=== PATIENT | female | born 1965 | race Caucasian/White ===

== ENCOUNTER 2017-04-14 23:48 | Inpatient (IN) | payer BC ==
[~2017-04-14] VITALS: Ht 162.6 cm; Wt 99.2 kg
[~2017-04-14 23:48] MED LIST: AMIT10TA6 PO; HYOS0.1256 SL; IBUP-103 PO; METO25TA56 PO; MTR600X PO; OMEG10007 PO; OXYC-57 PO; POTA10CA28 PO; PRLSR20 PO; TRIA75TA53 PO
[2017-04-15] MEDS ORDERED: KETOROLAC TROMETHAMINE 30 MG/ML VIAL IV STA (00:15)
[2017-04-15 00:30] LABS: BASO % 0.4 %; BASO ABS # 0.04 K/uL (0-0.2); EOS % 1.6 %; EOS ABS # 0.15 K/uL (0-0.5); HEMATOCRIT 41.6 % (37-47); HEMOGLOBIN 14.6 g/dL (12.0-16.0); IG# 0.02 K/uL (0.00-0.02); LYMPH % 17.8 %; LYMPH ABS # 1.63 K/uL (1.2-3.4); MEAN CELL VOLUME 86.5 fL (80-100); MEAN CORPUSCULAR HEMOGLOBIN 30.4 pg (25-34); MEAN CORPUSCULAR HGB CONC 35.1 g/dl (32-36); MEAN PLATELET VOLUME 8.9 fL (7.4-10.4); MONO % 5.7 %; MONO ABS # 0.52 K/uL (0.11-0.59); NEUT % 74.3 %; NEUT ABS # 6.81 K/uL (1.4-6.5); PLATELET COUNT 279 K/uL (130-400); RED CELL DISTRIBUTION WIDTH CV 13.2 % (11.5-14.5); RED CELL DISTRIBUTION WIDTH SD 41.8 fL (36.4-46.3); WHITE BLOOD COUNT 9.17 K/uL (4.8-10.8)
[2017-04-15] MEDS ORDERED: DOCU-94 PO (00:33)
[2017-04-15] MEDS ORDERED: CHOL2000 PO (00:36)
[2017-04-15] MEDS ORDERED: HYDR25TA4 PO (00:36)
[2017-04-15] MEDS ORDERED: MISCCAP80 PO (00:39)
[2017-04-15] MEDS ORDERED: OSEL75CA23 PO (00:39)
[2017-04-15 00:40] LABS: INR 0.9 (0.9-1.1); PTT PATIENT 27.9 SECONDS (21.0-31.0)
[2017-04-15] MEDS ORDERED: RANI300T2 PO (00:40)
[2017-04-15] MEDS ORDERED: KETO10TA PO (00:41)
[2017-04-15] MEDS ORDERED: B-COTAB18 PO (00:42)
[2017-04-15 00:51] LABS: ALBUMIN 3.4 gm/dl (3.4-5.0); ALT/SGPT 46 U/L (12-78); AST/SGOT 49 U/L (15-37); BLOOD UREA NITROGEN 8 mg/dl (7-18); CALCIUM 8.5 mg/dl (8.5-10.1); CARBON DIOXIDE 29 mmol/L (21-32); CREATININE 0.67 mg/dl (0.60-1.20); GLUCOSE 106 mg/dl (70-99); LIPASE 217 U/L (73-393); POTASSIUM 2.9 mmol/L (3.5-5.1); SODIUM 137 mmol/L (136-145)
[2017-04-15 00:57] LABS: ALKALINE PHOSPHATASE 97 U/L (45-117); CKMB 0.6 ng/ml (0.5-3.6); TOTAL PROTEIN 7.7 gm/dl (6.4-8.2)
[2017-04-15] MEDS ORDERED: CEFOXITIN 2000MG/60 ML D5W IV STA (02:29)
--- NOTE | 2017-04-15 02:39 | EMERGENCY ROOM VISIT NOTE ---
History Report prepared by Lashawn: Mitesh Cochran Under the Supervision of: Dr. Sudarshan Chawla M.D. First contact with patient: 00:02 Chief Complaint: CHEST PAIN Stated Complaint: HEARTBURN-WILL NOT GO AWAY LAST 3-4 HRS History of Present Illness The patient is a 51 year old female who presents to the Emergency Room with complaints of constant chest pain since three hours ago. She describes the pain as sharp. She notes the sharp pain has improved. She denies any abdominal pain, though notes rib soreness. She notes the pressure has not resolved. She currently rates the pain a 2/10 in severity, though reports it as a 9/10 at its worst. She denies any similar symptoms in the past. She has a history of HTN, though denies any DM. She has a history of breast reduction surgery and a partial hysterectomy. She took a Ranidine initially and then she took Omeprazole. She reports feeling hot, cold, and sweaty. She has been on Tamiflu for two days, though she has not been tested for influenza. She reports experiencing flu-like symptoms three days ago. She had chills three days ago and by that evening she reported body aches and jaw pain. She denies any cough. She reports dull back pain. She has a family history of CHF, gall bladder disease, and DM. She reports her sister had CHF in her early 30s. Pt denies LOC , headache, fevers, visual changes, neck pain, breathing difficulties, nausea, vomiting, abdominal pain, melena, hematochezia, urinary symptoms, numbness, weakness, rash, or other complaints. Source of History: patient Onset: three hours ago Position: chest Symptom Intensity: 2/10 Associated Symptoms: + chills, + back pain, No cough Note: She reports rib soreness, feeling hot, cold, and sweaty. She reports body aches and jaw pain. Review of Systems See HPI for pertinent positives and negatives. A total of ten systems were reviewed and were otherwise negative. Past Medical & Surgical Medical Problems: (1) Cholecystitis (2) Menorrhagia (3) Pelvic pain Surgical Problems: (1) H/O bilateral breast reduction surgery (2) S/P partial hysterectomy Family History Diabetes mellitus Gallbladder disease Heart disease Social History Smoking Status: Never Smoker Smokeless Tobacco Use: No Marital Status: Housing Status: lives with family Occupation Status: employed Current/Historical Medications Scheduled B-Complex Vitamins (Vitamin B Complex), 1 TAB PO DAILY Cholecalciferol (Vitamin D3), 2,000 MG PO DAILY Docusate Sodium (Colace), 100 MG PO DAILY Fish Oil ([place]-3), 1 CAP PO QAM Hydrochlorothiazide (Hctz), 25 MG PO DAILY Oseltamivir Phosphate (Tamiflu), 75 MG PO BID Potassium Chloride (Micro-K Ext Rel), 10 MEQ PO QAM Probiotic Product (Probiotic), 1 CAP PO DAILY Ranitidine Hcl (Zantac), 300 MG PO HS Scheduled PRN Ketorolac (Toradol), 10 MG PO Q6H PRN for Pain Omeprazole (Prilosec), 20 MG PO DAILY PRN for GI Upset Allergies Coded Allergies: Iodine (Unverified Allergy, Mild, 04/03/09) Aspirin (Unverified Adverse Reaction, Unknown, BLOODY NOSE, 05/23/13) Physical Exam Vital Signs Date Time Temp Pulse Resp B/P (MAP) Pulse Ox O2 Delivery O2 Flow Rate FiO2 04/15/17 01:51 66 18 120/81 96 Room Air 04/15/17 01:05 73 18 125/84 95 Room Air 04/15/17 00:17 69 04/15/17 00:16 97 Room Air 04/15/17 00:13 97 Room Air 04/15/17 00:13 72 18 147/97 97 Room Air 04/15/17 00:13 97 Room Air 04/14/17 23:51 36.6 77 16 153/99 97 Room Air Physical Exam GENERAL: Awake, alert, well-appearing, in no distress HENT: Normocephalic, atraumatic. Oropharynx unremarkable. EYES: Normal conjunctiva. Sclera non-icteric. NECK: Supple. No nuchal rigidity. FROM. No masses. RESPIRATORY: Clear to auscultation. No wheezes. CARDIAC: Normal rate. Normal rhythm. No murmurs. No rubs. Extremities warm and well perfused. Pulses equal. No JVD. GI: Soft, non-distended. Tenderness to palpation in RUQ. No rebound or guarding. No masses. RECTAL: Deferred. MUSCULOSKELETAL: Atraumatic. Chest examination reveals no tenderness. The back is symmetrical on inspection without obvious abnormality. There is no CVA tenderness to palpation. No joint edema. LOWER EXTREMITIES: Calves are equal size bilaterally and non-tender. No edema. No discoloration. NEURO: Normal sensorium. No sensory or motor deficits noted. SKIN: No rash or jaundice noted. Medical Decision & Procedures ER Provider Diagnostic Interpretation: Radiology results as stated below per my review and interpretation: Chest x-ray. Findings: A chest x-ray was performed and revealed no pneumothorax , effusion, infiltrate, pulmonary edema, free air under the diaphragm, or wide mediastinum. When compared to 11/20/2013 There is no change. Ultrasound of the right upper quadrant per stat rad. There is an echogenic structure in the gallbladder neck and this is concerning for a stone. Additional stones and sludge in the rest of the gallbladder. Mild distention of the gallbladder. Gallbladder wall thickening measuring 4.7 mm. Mild pericholecystic fluid and or fatty sparing in the liver along the gallbladder fossa. Findings are concerning for acute cholecystitis. Sonographic Simpson sign could not be assessed due to patient's receiving pain meds. Mildly enlarged common bile duct measuring up to 7 mm. No choledocholithiasis identified. Ringdown artifact in the wall of the gallbladder fundus may represent adenomyomatosis. Laboratory Results 04/15/17 00:10 Red Blood Count 4.81, Mean Corpuscular Volume 86.5, Mean Corpuscular Hemoglobin 30.4, Mean Corpuscular Hemoglobin Concent 35.1, Mean Platelet Volume 8.9, Neutrophils (%) (Auto) 74.3, Lymphocytes (%) (Auto) 17.8, Monocytes (%) (Auto) 5.7, Eosinophils (%) (Auto) 1.6, Basophils (%) (Auto) 0.4, Neutrophils # (Auto) 6.81, Lymphocytes # (Auto) 1.63, Monocytes # (Auto) 0.52, Eosinophils # (Auto) 0.15, Basophils # (Auto) 0.04 04/15/17 00:10 Test 04/15/17 00:10 White Blood Count 9.17 K/uL (4.8-10.8) Red Blood Count 4.81 M/uL (4.2-5.4) Hemoglobin 14.6 g/dL (12.0-16.0) Hematocrit 41.6 % (37-47) Mean Corpuscular Volume 86.5 fL (80-100) Mean Corpuscular Hemoglobin 30.4 pg (25-34) Mean Corpuscular Hemoglobin Concent 35.1 g/dl (32-36) Platelet Count 279 K/uL (130-400) Mean Platelet Volume 8.9 fL (7.4-10.4) Neutrophils (%) (Auto) 74.3 % Lymphocytes (%) (Auto) 17.8 % Monocytes (%) (Auto) 5.7 % Eosinophils (%) (Auto) 1.6 % Basophils (%) (Auto) 0.4 % Neutrophils # (Auto) 6.81 K/uL (1.4-6.5) Lymphocytes # (Auto) 1.63 K/uL (1.2-3.4) Monocytes # (Auto) 0.52 K/uL (0.11-0.59) Eosinophils # (Auto) 0.15 K/uL (0-0.5) Basophils # (Auto) 0.04 K/uL (0-0.2) RDW Standard Deviation 41.8 fL (36.4-46.3) RDW Coefficient of Variation 13.2 % (11.5-14.5) Immature Granulocyte % (Auto) 0.2 % Immature Granulocyte # (Auto) 0.02 K/uL (0.00-0.02) Prothrombin Time 9.7 SECONDS (9.0-12.0) Prothromb Time International Ratio 0.9 (0.9-1.1) Activated Partial Thromboplast Time 27.9 SECONDS (21.0-31.0) Partial Thromboplastin Ratio 1.1 Anion Gap 8.0 mmol/L (3-11) Est Creatinine Clear Calc Drug Dose 118.5 ml/min Estimated GFR () 119.6 Estimated GFR (Non- 103.2 BUN/Creatinine Ratio 11.3 (10-20) Calcium Level 8.5 mg/dl (8.5-10.1) Total Bilirubin 0.4 mg/dl (0.2-1) Direct Bilirubin 0.2 mg/dl (0-0.2) Aspartate Amino Transf (AST/SGOT) 49 U/L (15-37) Alanine Aminotransferase (ALT/SGPT) 46 U/L (12-78) Alkaline Phosphatase 97 U/L (45-117) Total Creatine Kinase 51 U/L (26-192) Creatine Kinase MB 0.6 ng/ml (0.5-3.6) Creatine Kinase MB Ratio 1.2 (0-3.0) Troponin I < 0.015 ng/ml (0-0.045) Total Protein 7.7 gm/dl (6.4-8.2) Albumin 3.4 gm/dl (3.4-5.0) Lipase 217 U/L (73-393) Laboratory results reviewed by me Medications Administered Medications (Trade) Dose Ordered Sig/Mary Route Start Time Stop Time Status Last Admin Dose Admin Ketorolac Tromethamine (Toradol Inj) 15 mg NOW STAT IV 04/15/17 00:15 04/15/17 00:16 DC 04/15/17 00:21 15 MG ECG Per My Interpretation Indication: chest pain Rate (beats per minute): 69 Rhythm: normal sinus Findings: no acute ischemic change, no ectopy Change: Patient's electrocardiogram was interpreted by me. ED Course 0010: The patient was evaluated in room A2. A complete history and physical exam was performed. 0015: Ordered Toradol 15 mg IV 0050: I reassessed the patient at this time. She is feeling better. Medical Decision Triage Nursing notes reviewed. The patient's presentation and history were concerning for chest and upper abdominal pain. Etiologies such as peptic ulcer disease, biliary pathology, reflux, cardiac ischemia, aortic dissection, pulmonary embolism, pneumonia, pneumothorax, musculoskeletal, infections, gastrointestinal, as well as others were entertained. The patient was evaluated. ECG was performed. This was negative. Blood work was obtained and was rather unremarkable. There is minimal elevation of LFTs. She was tender in the right upper quadrant and gallbladder imaging was performed. Chest x-ray was unremarkable. She was given IV Toradol and did feel better with this. Her ultrasound imaging was concerning for acute cholecystitis. The patient was given a dose of IV Mefoxin. Consultation was made with internal medicine as there is concerned about an impacted stone in the gallbladder neck. I discussed the case. The patient was evaluated in the Emergency Room for further management. Medication Reconcilliation Current Medication List: was personally reviewed by me Consults Time Called: 023 Consulting Physician: Dr. Howe Returned Call: 0230 Discussed the patient's results and presentation. He will evaluate the patient for further management and consultation. Impression Primary Impression: Cholecystitis Scribe Attestation The scribe's documentation has been prepared under my direction and personally reviewed by me in its entirety. I confirm that the note above accurately reflects all work, treatment, procedures, and medical decision making performed by me. Departure Information Dispostion Being Evaluated By Hospitalist Referrals Roxane Gallardo D.O. (PCP) Patient Instructions My [facility] [address]
[2017-04-15] MEDS ORDERED: ENOXAPARIN 40 MG/0.4 ML SYR SQ SCH (03:00)
[2017-04-15] MEDS ORDERED: MoRPHine SULFATE 4 MG/ML 1 ML CARP\\VIAL IV PRN (03:00)
[2017-04-15] MEDS ORDERED: PROCHLORPERAZINE INJ 5 MG in SYRINGE 4 ML IV PRN (03:00)
[2017-04-15] MEDS ORDERED: PANTOprazole SOD 40 MG TAB PO PRN (03:00)
[2017-04-15] MEDS ORDERED: ACETAMINOPHEN 325 MG TAB PO PRN (03:00)
[2017-04-15] MEDS ORDERED: LORAZEPAM 2 MG/ML 1 ML VIAL IV PRN (03:00)
[2017-04-15] MEDS ORDERED: TRAMADOL HCL 50 MG TAB PO PRN (03:00)
[2017-04-15 04:00] VITALS: BP 142/94; PULSE 72; TEMP 36.5; Ht 162.6 cm; Wt 99.2 kg
[2017-04-15] MEDS ORDERED: NSS + 20MEQ KCL 1000ML 1,000 ML IV SCH (04:00)
[2017-04-15] MEDS ORDERED: POTASSIUM CHLORIDE 20 MEQ TABCR PO SCH (04:00)
[2017-04-15] MEDS: AMPICILLIN/SULBACTAM SOD INJ 3,000 MG in SODIUM CHLORIDE 0.9% 100ML 100 ML IV SCH ×3 (04:08→16:25)
[2017-04-15] MEDS ORDERED: AMPICILLIN/SULBACTAM CONSULT ACTIVE PRN (04:45)
--- NOTE | 2017-04-15 05:35 | HISTORY & PHYSICAL EXAMINATION ---
DATE OF ADMISSION: 04/15/2017 PRIMARY CARE PHYSICIAN: Roxane Gallardo DO. CHIEF COMPLAINT: Abdominal pain. HISTORY OF PRESENT ILLNESS: History obtained from patient and records. Medical history significant for hypertension, GERD, diverticulosis. Last year, on and off epigastric discomfort, burning, precipitated by fatty food intake, sometimes relieved by antacids. Last night, she had recurrence of discomfort going to the right side and relieved by home antacids, nausea, 2 episodes of emesis. Good bowel movement. No fever, no chills. An ultrasound done at the ER showed fatty infiltration. Echogenic structure. Gallbladder neck, concern recurrent stone, additional stone and sludge. mild pericholecystic fluid, concerning for acute cholecystitis. ring down artifact, gallbladder wall, representing adenomatosis, mildly enlarged common bile duct measuring 7 mm. No stone identified. Patient given cefoxitin in the ER for possible cholecystitis. MEDICAL HISTORY: As above. Px started on Tamiflu by work Telemedicine program for presumptive flu 2 days ago . flu test was however negative. SURGICAL HISTORY: She has had breast reduction, gynecologic procedures. HOME MEDICATIONS: Include omeprazole, Tamiflu, probiotic, Micro-K, Zantac. Multivitamins, Colace, and Toradol. ALLERGIES: TO ASPIRIN AND IODINE. FAMILY HISTORY: Gallbladder disease, heart disease, diabetes, and stroke. PERSONAL AND SOCIAL HISTORY: Nonsmoker. No chronic intake of alcoholic beverages. [employer] employee. REVIEW OF SYSTEMS: As per HPI. All 10 systems reviewed, all other ROS negative. PHYSICAL EXAMINATION: VITAL SIGNS: Blood pressure was noted to be 125/84, pulse rate 70, RR 18, temperature 36.6, and sats 97 on room air. GENERAL: pleasant, no respiratory distress, obese. Looks younger for stated age. SKIN: Normal color. Warm. HEENT: Shorter palpebral conjunctivae. No ptosis. Dry mucosa. NECK: Short neck, supple. CHEST: Clear to auscultation. No tenderness. HEART: Regular rate and rhythm. No murmur. ABDOMEN: Some distention. Minimal epigastric tenderness. EXTREMITIES: Minimal LE edema. No tenderness. No gross deformities NEUROLOGIC: Coherent, no gross focality. LABORATORY DATA: Hemoglobin was 14.6, hematocrit 44, white cell count was 9, and platelets 270. Sodium 138, potassium 2.9, chloride 100, CO2 of 21, BUN 8, creatinine 0.6, glucose was noted to be 106. AST 49, ALT normal. Lipase was 217. Gallbladder ultrasound as above. ASSESSMENT: 1. Acute calculous cholecystitis. No sepsis. 2. Hypertension, stable. 3. Hypokalemia secondary to emesis, diuretic therapy. 4. Recent viral illness, on empiric Tamiflu Rx. PLAN: GMF Unasyn. Surgery consult RE cholecystitis. Replace potassium. Hold home diuretics for now. Complete Tamiflu course. DVT prophylaxis with Lovenox subQ. Full code. MTDD
[2017-04-15 05:41] LABS: BASO % 0.3 %; BASO ABS # 0.02 K/uL (0-0.2); EOS % 1.4 %; EOS ABS # 0.08 K/uL (0-0.5); HEMATOCRIT 38.8 % (37-47); HEMOGLOBIN 13.7 g/dL (12.0-16.0); IG# 0.02 K/uL (0.00-0.02); LYMPH ABS # 1.64 K/uL (1.2-3.4); MEAN CORPUSCULAR HEMOGLOBIN 30.4 pg (25-34); MEAN CORPUSCULAR HGB CONC 35.3 g/dl (32-36); MEAN PLATELET VOLUME 8.8 fL (7.4-10.4); MONO % 6.5 %; MONO ABS # 0.38 K/uL (0.11-0.59); NEUT % 63.5 %; NEUT ABS # 3.72 K/uL (1.4-6.5); PLATELET COUNT 245 K/uL (130-400); RED CELL DISTRIBUTION WIDTH CV 13.1 % (11.5-14.5); RED CELL DISTRIBUTION WIDTH SD 41.2 fL (36.4-46.3); WHITE BLOOD COUNT 5.86 K/uL (4.8-10.8)
[2017-04-15] MEDS ORDERED: CEFTRIAXONE SOD INJ 1 GM in DEXTROSE 5% ADD-VANTAGE 50ML 50 ML IV SCH (06:00)
[2017-04-15] MEDS ORDERED: CEFTRIAXONE SOD INJ 1000 MG in DEXTROSE 5% 50ML IV SCH (06:00)
[2017-04-15 06:18] LABS: CREATININE 0.69 mg/dl (0.60-1.20); POTASSIUM 3.2 mmol/L (3.5-5.1)
[2017-04-15 06:21] LABS: TOTAL PROTEIN 6.8 gm/dl (6.4-8.2)
--- NOTE | 2017-04-15 06:51 | DIAGNOSTIC IMAGING REPORT ---
ABDOMINAL ULTRASOUND, RIGHT UPPER QUADRANT HISTORY: Right upper quadrant abdominal pain. Vomiting.. COMPARISON: Outside hospital abdomen and pelvis CTA 113. FINDINGS: Pancreas: The body and tail the pancreas are obscured by overlying bowel gas. The pancreatic head appears unremarkable. Liver: The liver is echogenic consistent with fatty change. Gallbladder: Mild gallbladder wall thickening with trace edema adjacent to the hepatic surface. Small stone near the neck of the gallbladder. Small amount of gallbladder sludge. Small amount of right down artifact at the gallbladder wall near the fundus may represent adenomyomatosis. CBD: Mildly dilated measuring up to 7 mm. Right kidney: No hydronephrosis. IMPRESSION: 1. Gallbladder wall thickening containing a small amount of sludge and a small stone. Common bile duct is slightly distended up 7 mm. This findings could represent acute cholecystitis. Clinical correlation recommended. 2. Hepatic steatosis. Electronically signed by: Bishop Leon M.D. 04/15/2017 6:50 AM Dictated Date/Time: 04/15/2017 6:46 AM
[2017-04-15 06:52] VITALS: BP 123/80; PULSE 72; TEMP 36.5; O2SAT 97
[2017-04-15 07:30] VITALS: O2SAT 97
--- NOTE | 2017-04-15 07:47 | Surgery Consultation ---
Consultation Date of Consultation: Apr 15, 2017. Attending Physician: Noman Villegas DO Reason for Consultation: Acute Cholecystitis History of Present Illness 51F presented to the ED yesterday evening due to abdominal pain, nausea and an episode of vomiting. Patient reports her pain is mostly controlled at this time but she still feels discomfort in her RUQ. States she has had problems like this in the past but never severe or lasting more than 1-2 hours. No N/V since she came to the ED. Denies fever/chills but she has been sick recently ( diagnosed with the flu on ). She has been urinating and moving her bowels without trouble. PSHx significant for partial hysterectomy. FHx significant for gallbladder disease. She last ate yesterday before presenting to the ED. She is currently receiving lovenox in the hospital. WBC WNL. AST 154 , ALT 127. Family History Diabetes mellitus Gallbladder disease Heart disease Social History Smoking Status: Never Smoker Smokeless Tobacco Use: No Marital Status: Housing Status: lives with family Occupation Status: employed Allergies Coded Allergies: Iodine (Unverified Allergy, Mild, 04/03/09) Aspirin (Unverified Adverse Reaction, Unknown, BLOODY NOSE, 05/23/13) Home Medications Scheduled B-Complex Vitamins (Vitamin B Complex), 1 TAB PO DAILY Cholecalciferol (Vitamin D3), 2,000 MG PO DAILY Docusate Sodium (Colace), 100 MG PO DAILY Fish Oil ([place]-3), 1 CAP PO QAM Hydrochlorothiazide (Hctz), 25 MG PO DAILY Oseltamivir Phosphate (Tamiflu), 75 MG PO BID Potassium Chloride (Micro-K Ext Rel), 10 MEQ PO QAM Probiotic Product (Probiotic), 1 CAP PO DAILY Ranitidine Hcl (Zantac), 300 MG PO HS Scheduled PRN Ketorolac (Toradol), 10 MG PO Q6H PRN for Pain Omeprazole (Prilosec), 20 MG PO DAILY PRN for GI Upset Current Inpatient Medications Current Inpatient Medications Medications (Trade) Dose Ordered Sig/Mary Route Start Time Stop Time Status Last Admin Dose Admin Potassium Chloride/Sodium Chloride 1,000 ml @ 60 mls/hr [id number] IV 04/15/17 04:00 05/15/17 03:59 04/15/17 04:07 60 MLS/HR Enoxaparin Sodium (Lovenox Inj) 40 mg Q24H SQ 04/15/17 03:00 05/15/17 02:59 04/15/17 04:09 40 MG Acetaminophen (Tylenol Tab) 325 mg Q6H PRN PO 04/15/17 03:00 05/15/17 02:59 Tramadol HCl (Ultram Tab) not relieved by tylenol @ Q6H PRN PO 04/15/17 03:00 05/15/17 02:59 Prochlorperazine Edisylate 5 mg/ Syringe 5 ml @ 5 mls/min Q6H PRN IV 04/15/17 03:00 05/15/17 02:59 Lorazepam (Ativan Inj) 0.5 mg Q4H PRN IV 04/15/17 03:00 05/15/17 02:59 Morphine Sulfate (MoRPHine SULFATE INJ) 4 mg Q3H PRN IV 04/15/17 03:00 04/29/17 02:59 Ampicillin Sodium/ Sulbactam Sodium (Consult) 1 ea UD PRN N/A 04/15/17 04:45 05/15/17 04:44 Docusate Sodium (coLACE CAP) 100 mg DAILY PO 04/15/17 09:00 05/15/17 08:59 Oseltamivir Phosphate (Tamiflu Cap) 75 mg BID PO 04/15/17 09:00 04/19/17 08:59 Ranitidine HCl (zANTac TAB) 300 mg HS PO 04/15/17 21:00 05/15/17 20:59 Vitamin B Complex (Vitamin B Complex) 1 tab DAILY PO 04/15/17 09:00 05/15/17 08:59 Pantoprazole Sodium (Protonix Tab) 40 mg DAILY PRN PO 04/15/17 03:00 05/15/17 02:59 Ampicillin Sodium/ Sulbactam Sodium 3000 mg/Sodium Chloride 108 ml @ 216 mls/hr Q6H IV 04/15/17 04:00 04/25/17 03:59 04/15/17 04:08 216 MLS/HR Review of Systems Constitutional: No fever, No chills Cardiovascular: No chest pain Abdomen: + pain (RUQ), + nausea, + vomiting, No diarrhea, No constipation Genitourinary - Female: No dysuria Physical Exam Date Time Temp Pulse Resp B/P (MAP) Pulse Ox O2 Delivery O2 Flow Rate FiO2 04/15/17 06:52 36.5 72 16 123/80 (94) 97 Room Air 04/15/17 04:00 36.5 72 16 142/94 Room Air 04/15/17 04:00 Room Air 04/15/17 03:00 67 18 138/90 97 Room Air 04/15/17 01:51 66 18 120/81 96 Room Air 04/15/17 01:05 73 18 125/84 95 Room Air 04/15/17 00:17 69 04/15/17 00:16 97 Room Air 04/15/17 00:13 97 Room Air 04/15/17 00:13 72 18 147/97 97 Room Air 04/15/17 00:13 97 Room Air 04/14/17 23:51 36.6 77 16 153/99 97 Room Air General Appearance: WD/WN, no apparent distress Head: normocephalic, atraumatic ENT: hearing grossly normal Respiratory/Chest: no respiratory distress, no accessory muscle use Abdomen/GI: normal bowel sounds, soft, no organomegaly, no pulsatile mass, + tenderness (RUQ) Neurologic/Psych: alert, normal mood/affect, oriented x 3 Skin: normal color, warm/dry Laboratory Results Last 24 Hours Test 04/15/17 00:10 04/15/17 05:01 White Blood Count 9.17 K/uL 5.86 K/uL Red Blood Count 4.81 M/uL 4.51 M/uL Hemoglobin 14.6 g/dL 13.7 g/dL Hematocrit 41.6 % 38.8 % Mean Corpuscular Volume 86.5 fL 86.0 fL Mean Corpuscular Hemoglobin 30.4 pg 30.4 pg Mean Corpuscular Hemoglobin Concent 35.1 g/dl 35.3 g/dl Platelet Count 279 K/uL 245 K/uL Mean Platelet Volume 8.9 fL 8.8 fL Neutrophils (%) (Auto) 74.3 % 63.5 % Lymphocytes (%) (Auto) 17.8 % 28.0 % Monocytes (%) (Auto) 5.7 % 6.5 % Eosinophils (%) (Auto) 1.6 % 1.4 % Basophils (%) (Auto) 0.4 % 0.3 % Neutrophils # (Auto) 6.81 K/uL 3.72 K/uL Lymphocytes # (Auto) 1.63 K/uL 1.64 K/uL Monocytes # (Auto) 0.52 K/uL 0.38 K/uL Eosinophils # (Auto) 0.15 K/uL 0.08 K/uL Basophils # (Auto) 0.04 K/uL 0.02 K/uL RDW Standard Deviation 41.8 fL 41.2 fL RDW Coefficient of Variation 13.2 % 13.1 % Immature Granulocyte % (Auto) 0.2 % 0.3 % Immature Granulocyte # (Auto) 0.02 K/uL 0.02 K/uL Prothrombin Time 9.7 SECONDS Prothromb Time International Ratio 0.9 Activated Partial Thromboplast Time 27.9 SECONDS Partial Thromboplastin Ratio 1.1 Sodium Level 137 mmol/L 139 mmol/L Potassium Level 2.9 mmol/L 3.2 mmol/L Chloride Level 100 mmol/L 101 mmol/L Carbon Dioxide Level 29 mmol/L 30 mmol/L Anion Gap 8.0 mmol/L 7.0 mmol/L Blood Urea Nitrogen 8 mg/dl 8 mg/dl Creatinine 0.67 mg/dl 0.69 mg/dl Est Creatinine Clear Calc Drug Dose 118.5 ml/min 112.9 ml/min Estimated GFR () 119.6 118.5 Estimated GFR (Non- 103.2 102.2 BUN/Creatinine Ratio 11.3 11.2 Random Glucose 106 mg/dl 85 mg/dl Calcium Level 8.5 mg/dl 8.0 mg/dl Magnesium Level 2.2 mg/dl Total Bilirubin 0.4 mg/dl 0.3 mg/dl Direct Bilirubin 0.2 mg/dl Aspartate Amino Transf (AST/SGOT) 49 U/L 154 U/L Alanine Aminotransferase (ALT/SGPT) 46 U/L 127 U/L Alkaline Phosphatase 97 U/L 99 U/L Total Creatine Kinase 51 U/L Creatine Kinase MB 0.6 ng/ml Creatine Kinase MB Ratio 1.2 Troponin I < 0.015 ng/ml Total Protein 7.7 gm/dl 6.8 gm/dl Albumin 3.4 gm/dl 3.0 gm/dl Lipase 217 U/L Globulin 3.8 gm/dl Albumin/Globulin Ratio 0.8 Assessment & Plan Acute Cholecystitis Symptoms and imaging seem to correlate with GB etiology. Continue NPO, IV fluids, pain medication PRN, IV Zofran PRN, SCDs. MRCP scheduled for today due to elevated liver enzymes. Given recent illness, it would be worthwhile to hold off on removing gallbladder. Will opt for close outpatient f/u for gallbladder removal if patient continues to feel better. Findings discussed with Dr. Vinson. Please contact with questions or concerns.
--- NOTE | 2017-04-15 08:13 | DIAGNOSTIC IMAGING REPORT ---
CHEST ONE VIEW PORTABLE HISTORY: Atypical CHEST PAIN COMPARISON: Chest 11/20/2012. FINDINGS: There are low lung volumes. The lungs are clear. The heart is mildly enlarged. No pleural effusions. No pneumothorax. IMPRESSION: Mild cardiomegaly and low lung volumes. Otherwise, no acute process within the chest Electronically signed by: Bishop Leon M.D. 04/15/2017 8:11 AM Dictated Date/Time: 04/15/2017 8:10 AM
[2017-04-15] MEDS ORDERED: NON-FORMULARY MEDICATION (Probiotic Product (Probiotic) 1 CAP) PO SCH (09:00)
[2017-04-15] MEDS ORDERED: VITAMIN B COMPLEX TAB PO SCH (09:00)
[2017-04-15] MEDS ORDERED: OSELTAMIVIR PHOSPHATE 75 MG CAP PO SCH (09:00)
[2017-04-15] MEDS ORDERED: DOCUSATE SODIUM 100 MG CAP PO SCH (09:00)
--- NOTE | 2017-04-15 13:15 | DIAGNOSTIC IMAGING REPORT ---
MRCP HISTORY: Generalized abdominal pain. Abnormal ultrasound. Abnormal LFTs. TECHNIQUE: MRCP the abdomen was performed without contrast according to standard departmental protocol. COMPARISON STUDY: Abdominal ultrasound 04/15/2017. FINDINGS: Trace bilateral pleural effusions. There is motion artifact. The liver, adrenal glands, pancreas, and kidneys are unremarkable. Diverticulum at the second portion of the duodenum. The spleen is enlarged measuring 14 cm in length. A 5 mm T2 hyperintense focus within the lower aspect of the spleen. This is incompletely characterize on this noncontrast study but is likely benign. No retroperitoneal lymphadenopathy or normal caliber common bile duct measuring up to 4 mm. No filling defects seen within the common bile duct. There is a small stone within the gallbladder. The main pancreatic duct appears to be normal and course and caliber. No intrahepatic bile duct dilatation. Small amount of pericholecystic fluid. IMPRESSION: 1. A small gallstone. There is also a small amount of pericholecystic fluid. This is nonspecific and could be due to acute cholecystitis , a diffuse edematous state, or underlying hepatic pathology such as hepatitis. Clinical correlation recommended. 2. Trace bilateral pleural effusions. 3. Normal caliber common bile duct. No filling defects within the common bile duct. 4. Splenomegaly. Electronically signed by: Bishop Leon M.D. 04/15/2017 1:13 PM Dictated Date/Time: 04/15/2017 1:05 PM
--- NOTE | 2017-04-15 13:37 | Surgery Progress Note ---
Surgery Progress Note Date of Service Apr 15, 2017. Subjective + feeling well, + pain controlled, No nausea, No vomiting Objective Vital Signs: Date Time Temp Pulse Resp B/P (MAP) Pulse Ox O2 Delivery O2 Flow Rate FiO2 04/15/17 07:30 97 Room Air 04/15/17 06:52 36.5 72 16 123/80 (94) 97 Room Air 04/15/17 04:00 36.5 72 16 142/94 Room Air 04/15/17 04:00 Room Air 04/15/17 03:00 67 18 138/90 97 Room Air 04/15/17 01:51 66 18 120/81 96 Room Air 04/15/17 01:05 73 18 125/84 95 Room Air 04/15/17 00:17 69 04/15/17 00:16 97 Room Air 04/15/17 00:13 97 Room Air 04/15/17 00:13 72 18 147/97 97 Room Air 04/15/17 00:13 97 Room Air 04/14/17 23:51 36.6 77 16 153/99 97 Room Air Abdomen: non distended, soft, + pertinent finding (mild RUQ tenderness with palpation. ) Laboratory Results: Results Past 24 Hours Test 04/15/17 00:10 04/15/17 05:01 Range/Units White Blood Count 9.17 5.86 4.8-10.8 K/uL Red Blood Count 4.81 4.51 4.2-5.4 M/uL Hemoglobin 14.6 13.7 12.0-16.0 g/dL Hematocrit 41.6 38.8 37-47 % Mean Corpuscular Volume 86.5 86.0 80-100 fL Mean Corpuscular Hemoglobin 30.4 30.4 25-34 pg Mean Corpuscular Hemoglobin Concent 35.1 35.3 32-36 g/dl Platelet Count 279 245 130-400 K/uL Mean Platelet Volume 8.9 8.8 7.4-10.4 fL Neutrophils (%) (Auto) 74.3 63.5 % Lymphocytes (%) (Auto) 17.8 28.0 % Monocytes (%) (Auto) 5.7 6.5 % Eosinophils (%) (Auto) 1.6 1.4 % Basophils (%) (Auto) 0.4 0.3 % Neutrophils # (Auto) 6.81 3.72 1.4-6.5 K/uL Lymphocytes # (Auto) 1.63 1.64 1.2-3.4 K/uL Monocytes # (Auto) 0.52 0.38 0.11-0.59 K/uL Eosinophils # (Auto) 0.15 0.08 0-0.5 K/uL Basophils # (Auto) 0.04 0.02 0-0.2 K/uL RDW Standard Deviation 41.8 41.2 36.4-46.3 fL RDW Coefficient of Variation 13.2 13.1 11.5-14.5 % Immature Granulocyte % (Auto) 0.2 0.3 % Immature Granulocyte # (Auto) 0.02 0.02 0.00-0.02 K/uL Prothrombin Time 9.7 9.0-12.0 SECONDS Prothromb Time International Ratio 0.9 0.9-1.1 Activated Partial Thromboplast Time 27.9 21.0-31.0 SECONDS Partial Thromboplastin Ratio 1.1 Sodium Level 137 139 136-145 mmol/L Potassium Level 2.9 3.2 3.5-5.1 mmol/L Chloride Level 100 101 98-107 mmol/L Carbon Dioxide Level 29 30 21-32 mmol/L Anion Gap 8.0 7.0 3-11 mmol/L Blood Urea Nitrogen 8 8 7-18 mg/dl Creatinine 0.67 0.69 0.60-1.20 mg/dl Est Creatinine Clear Calc Drug Dose 118.5 112.9 ml/min Estimated GFR () 119.6 118.5 Estimated GFR (Non- 103.2 102.2 BUN/Creatinine Ratio 11.3 11.2 10-20 Random Glucose 106 85 70-99 mg/dl Calcium Level 8.5 8.0 8.5-10.1 mg/dl Magnesium Level 2.2 1.8-2.4 mg/dl Total Bilirubin 0.4 0.3 0.2-1 mg/dl Direct Bilirubin 0.2 0-0.2 mg/dl Aspartate Amino Transf (AST/SGOT) 49 154 15-37 U/L Alanine Aminotransferase (ALT/SGPT) 46 127 12-78 U/L Alkaline Phosphatase 97 99 45-117 U/L Total Creatine Kinase 51 26-192 U/L Creatine Kinase MB 0.6 0.5-3.6 ng/ml Creatine Kinase MB Ratio 1.2 0-3.0 Troponin I < 0.015 0-0.045 ng/ml Total Protein 7.7 6.8 6.4-8.2 gm/dl Albumin 3.4 3.0 3.4-5.0 gm/dl Lipase 217 73-393 U/L Globulin 3.8 2.5-4.0 gm/dl Albumin/Globulin Ratio 0.8 0.9-2 Assessment & Plan Patient seen and examined with Dr. Vinson AM labs reviewed. MRCP completed today- results reviewed. IMPRESSION: 1. A small gallstone. There is also a small amount of pericholecystic fluid. This is nonspecific and could be due to acute cholecystitis , a diffuse edematous state, or underlying hepatic pathology such as hepatitis. Clinical correlation recommended. 2. Trace bilateral pleural effusions. 3. Normal caliber common bile duct. No filling defects within the common bile duct. 4. Splenomegaly. Patient's abdominal pain greatly improved since admission. She was diagnosed with flu two days ago. Ok to discharge from surgical standpoint and F /U as outpatient. Patient instructed to follow-up in General Surgery Clinic as outpatient to discuss Cholecystectomy with Dr. Vinson.
[2017-04-15] MEDS ORDERED: POTASSIUM CHLORIDE 10 MEQ TABCR PO STA (15:27)
[2017-04-15 15:30] VITALS: BP 112/79; PULSE 69; TEMP 36.3; O2SAT 96
--- NOTE | 2017-04-15 17:19 | Progress Note ---
Subjective Date of Service: Apr 15, 2017. Subjective Pt evaluation today including: conversation w/ patient, physical exam, lab review, review of studies, conversation w/ biometrics consultant, review of inpatient medication list Saw/examined the patient in room 350 She is in no distress Abdominal pain has resolved, this was initially epigastric in nature, and then RUQ, but now has subsided Review of Systems Constitutional: No fever, No chills Respiratory: No cough, No sputum, No shortness of breath Cardiac: No chest pain Abdomen: No pain (resolved), No nausea, No vomiting, No diarrhea Heme: No abnormal bleeding/bruising Medications Current Inpatient Medications Medications (Trade) Dose Ordered Sig/Mary Route Start Time Stop Time Status Last Admin Dose Admin Potassium Chloride/Sodium Chloride 1,000 ml @ 60 mls/hr [id number] IV 04/15/17 04:00 05/15/17 03:59 04/15/17 04:07 60 MLS/HR Enoxaparin Sodium (Lovenox Inj) 40 mg Q24H SQ 04/15/17 03:00 05/15/17 02:59 04/15/17 04:09 40 MG Acetaminophen (Tylenol Tab) 325 mg Q6H PRN PO 04/15/17 03:00 05/15/17 02:59 Tramadol HCl (Ultram Tab) not relieved by tylenol @ Q6H PRN PO 04/15/17 03:00 05/15/17 02:59 Prochlorperazine Edisylate 5 mg/ Syringe 5 ml @ 5 mls/min Q6H PRN IV 04/15/17 03:00 05/15/17 02:59 Lorazepam (Ativan Inj) 0.5 mg Q4H PRN IV 04/15/17 03:00 05/15/17 02:59 Morphine Sulfate (MoRPHine SULFATE INJ) 4 mg Q3H PRN IV 04/15/17 03:00 04/29/17 02:59 Ampicillin Sodium/ Sulbactam Sodium (Consult) 1 ea UD PRN N/A 04/15/17 04:45 05/15/17 04:44 Docusate Sodium (coLACE CAP) 100 mg DAILY PO 04/15/17 09:00 05/15/17 08:59 Oseltamivir Phosphate (Tamiflu Cap) 75 mg BID PO 04/15/17 09:00 04/19/17 08:59 04/15/17 09:15 75 MG Ranitidine HCl (zANTac TAB) 300 mg HS PO 04/15/17 21:00 05/15/17 20:59 Vitamin B Complex (Vitamin B Complex) 1 tab DAILY PO 04/15/17 09:00 05/15/17 08:59 Pantoprazole Sodium (Protonix Tab) 40 mg DAILY PRN PO 04/15/17 03:00 05/15/17 02:59 Ampicillin Sodium/ Sulbactam Sodium 3000 mg/Sodium Chloride 108 ml @ 216 mls/hr Q6H IV 04/15/17 04:00 04/25/17 03:59 04/15/17 16:25 216 MLS/HR Objective Vital Signs Date Time Temp Pulse Resp B/P (MAP) Pulse Ox O2 Delivery O2 Flow Rate FiO2 04/15/17 15:30 36.3 69 18 112/79 (90) 96 Room Air 04/15/17 07:30 97 Room Air 04/15/17 06:52 36.5 72 16 123/80 (94) 97 Room Air 04/15/17 04:00 36.5 72 16 142/94 Room Air 04/15/17 04:00 Room Air 04/15/17 03:00 67 18 138/90 97 Room Air 04/15/17 01:51 66 18 120/81 96 Room Air 04/15/17 01:05 73 18 125/84 95 Room Air 04/15/17 00:17 69 04/15/17 00:16 97 Room Air 04/15/17 00:13 97 Room Air 04/15/17 00:13 72 18 147/97 97 Room Air 04/15/17 00:13 97 Room Air 04/14/17 23:51 36.6 77 16 153/99 97 Room Air Physical Exam General Appearance: no apparent distress Respiratory/Chest: no respiratory distress, no accessory muscle use Cardiovascular: regular rate, rhythm, no edema, no murmur Abdomen: normal bowel sounds, non tender, soft, no organomegaly, no pulsatile mass Laboratory Results Last 24 Hours Test 04/15/17 00:10 04/15/17 05:01 White Blood Count 9.17 K/uL 5.86 K/uL Red Blood Count 4.81 M/uL 4.51 M/uL Hemoglobin 14.6 g/dL 13.7 g/dL Hematocrit 41.6 % 38.8 % Mean Corpuscular Volume 86.5 fL 86.0 fL Mean Corpuscular Hemoglobin 30.4 pg 30.4 pg Mean Corpuscular Hemoglobin Concent 35.1 g/dl 35.3 g/dl Platelet Count 279 K/uL 245 K/uL Mean Platelet Volume 8.9 fL 8.8 fL Neutrophils (%) (Auto) 74.3 % 63.5 % Lymphocytes (%) (Auto) 17.8 % 28.0 % Monocytes (%) (Auto) 5.7 % 6.5 % Eosinophils (%) (Auto) 1.6 % 1.4 % Basophils (%) (Auto) 0.4 % 0.3 % Neutrophils # (Auto) 6.81 K/uL 3.72 K/uL Lymphocytes # (Auto) 1.63 K/uL 1.64 K/uL Monocytes # (Auto) 0.52 K/uL 0.38 K/uL Eosinophils # (Auto) 0.15 K/uL 0.08 K/uL Basophils # (Auto) 0.04 K/uL 0.02 K/uL RDW Standard Deviation 41.8 fL 41.2 fL RDW Coefficient of Variation 13.2 % 13.1 % Immature Granulocyte % (Auto) 0.2 % 0.3 % Immature Granulocyte # (Auto) 0.02 K/uL 0.02 K/uL Prothrombin Time 9.7 SECONDS Prothromb Time International Ratio 0.9 Activated Partial Thromboplast Time 27.9 SECONDS Partial Thromboplastin Ratio 1.1 Sodium Level 137 mmol/L 139 mmol/L Potassium Level 2.9 mmol/L 3.2 mmol/L Chloride Level 100 mmol/L 101 mmol/L Carbon Dioxide Level 29 mmol/L 30 mmol/L Anion Gap 8.0 mmol/L 7.0 mmol/L Blood Urea Nitrogen 8 mg/dl 8 mg/dl Creatinine 0.67 mg/dl 0.69 mg/dl Est Creatinine Clear Calc Drug Dose 118.5 ml/min 112.9 ml/min Estimated GFR () 119.6 118.5 Estimated GFR (Non- 103.2 102.2 BUN/Creatinine Ratio 11.3 11.2 Random Glucose 106 mg/dl 85 mg/dl Calcium Level 8.5 mg/dl 8.0 mg/dl Magnesium Level 2.2 mg/dl Total Bilirubin 0.4 mg/dl 0.3 mg/dl Direct Bilirubin 0.2 mg/dl Aspartate Amino Transf (AST/SGOT) 49 U/L 154 U/L Alanine Aminotransferase (ALT/SGPT) 46 U/L 127 U/L Alkaline Phosphatase 97 U/L 99 U/L Total Creatine Kinase 51 U/L Creatine Kinase MB 0.6 ng/ml Creatine Kinase MB Ratio 1.2 Troponin I < 0.015 ng/ml Total Protein 7.7 gm/dl 6.8 gm/dl Albumin 3.4 gm/dl 3.0 gm/dl Lipase 217 U/L Globulin 3.8 gm/dl Albumin/Globulin Ratio 0.8 Assessment and Plan This is a 51 year old female with a PMH of HTN, GERD, recent diagnosis of the flu - presented with epigastric and RUQ pain and subsequently found to have acute cholecystitis Acute Cholecystitis appreciate general surgery input at this point, patient's pain is controlled MRCP done - no CBD stone, there is a gallstone with likely acute cholecystitis plan is for outpatient f/u with general surgery and PCP can use Toradol/Ibuprofen PRN for pain low fat diet on discharge HTN continue home medications GERD continue Zantac DVT ppx Lovenox FULL CODE
[2017-04-15] MEDS ORDERED: HYOS0.1255 PO (17:26)
--- NOTE | 2017-04-15 17:29 | Discharge Instructions ---
Discharge Instructions Date of Service Apr 15, 2017. Admission Reason for Admission: Cholecystitis Discharge Discharge Diagnosis / Problem: Acute Cholecystitis Discharge Goals Goal(s): Decrease discomfort, Improve function, Diagnostic testing, Therapeutic intervention Activity Recommendations Activity Limitations: resume your previous activity . Instructions / Follow-Up Instructions / Follow-Up Please follow-up with Abbie Kay PA-C on April 19 at 12:45PM * Please follow a low-fat diet * You will be prescribed Levsin - take one tablet as needed if you have pain - if pain persists after taking the Levsin, return to the ER * Please follow-up with the general surgeon, Dr. Vinson Current Hospital Diet Patient's current hospital diet: Regular Diet Discharge Diet Recommended Diet: Low Fat Diet Pending Studies Studies pending at discharge: no Medical Emergencies . Who to Call and When: Medical Emergencies: If at any time you feel your situation is an emergency, please call 911 immediately. . Non-Emergent Contact Non-Emergency issues call your: Primary Care Provider, Surgeon Call Non-Emergent contact if: you have a fever, your pain is worsening, your pain is concerning you . . "Provider Documentation" section prepared by Noman Villegas. . VTE Core Measure Inpt VTE Proph given/why not?: Enoxaparin (Lovenox)SQ
--- NOTE | 2017-04-15 17:32 | Discharge Summary ---
Discharge Summary Date of Service Apr 15, 2017. Discharge Summary Admission Date: Apr 15, 2017 at 02:34 Discharge Date: Apr 15, 2017 Discharge Disposition: Home Principal Diagnosis: Acute Cholecystitis HTN GERD Medication Reconciliation New Medications: Hyoscyamine Sulfate (Levsin) 0.125 Mg Tab 0.125 MG PO Q4 PRN for Pain for 3 Days, #18 TAB Continued Medications: B-Complex Vitamins (Vitamin B Complex) 1 Tab Tab 1 TAB PO DAILY Cholecalciferol (Vitamin D3) 2,000 Unit Cap 2000 MG PO DAILY Docusate Sodium (Colace) 100 Mg Cap 100 MG PO DAILY, CAP Fish Oil (Remus-3) 1 Ea Cap 1 CAP PO QAM, CAP Hydrochlorothiazide (Hctz) 25 Mg Tab 25 MG PO DAILY, TAB Ketorolac (Toradol) 10 Mg Tab 10 MG PO Q6H PRN for Pain, TAB Omeprazole (Prilosec) 20 Mg Capcr 20 MG PO DAILY PRN for GI Upset, CAP Oseltamivir Phosphate (Tamiflu) 75 Mg Cap 75 MG PO BID, CAP Potassium Chloride (Micro-K Ext Rel) 10 Meq Capcr 10 MEQ PO QAM, CAP Probiotic Product (Probiotic) 1 Cap Cap 1 CAP PO DAILY Ranitidine Hcl (Zantac) 300 Mg Tab 300 MG PO HS, TAB Admission Information HPI (per Admitting provider): DATE OF ADMISSION: 04/15/2017 PRIMARY CARE PHYSICIAN: Roxane Gallardo DO. CHIEF COMPLAINT: Abdominal pain. HISTORY OF PRESENT ILLNESS: History obtained from patient and records. Medical history significant for hypertension, GERD, diverticulosis. Last year, on and off epigastric discomfort, burning, precipitated by fatty food intake, sometimes relieved by antacids. Last night, she had recurrence of discomfort going to the right side and relieved by home antacids, nausea, 2 episodes of emesis. Good bowel movement. No fever, no chills. An ultrasound done at the ER showed fatty infiltration. Echogenic structure. Gallbladder neck, concern recurrent stone, additional stone and sludge. mild pericholecystic fluid, concerning for acute cholecystitis. ring down artifact, gallbladder wall, representing adenomatosis, mildly enlarged common bile duct measuring 7 mm. No stone identified. Patient given cefoxitin in the ER for possible cholecystitis. MEDICAL HISTORY: As above. Px started on Tamiflu by work Telemedicine program for presumptive flu 2 days ago . flu test was however negative. SURGICAL HISTORY: She has had breast reduction, gynecologic procedures. HOME MEDICATIONS: Include omeprazole, Tamiflu, probiotic, Micro-K, Zantac. Multivitamins, Colace, and Toradol. ALLERGIES: TO ASPIRIN AND IODINE. FAMILY HISTORY: Gallbladder disease, heart disease, diabetes, and stroke. PERSONAL AND SOCIAL HISTORY: Nonsmoker. No chronic intake of alcoholic beverages. [employer] employee. REVIEW OF SYSTEMS: As per HPI. All 10 systems reviewed, all other ROS negative. PHYSICAL EXAMINATION: VITAL SIGNS: Blood pressure was noted to be 125/84, pulse rate 70, RR 18, temperature 36.6, and sats 97 on room air. GENERAL: pleasant, no respiratory distress, obese. Looks younger for stated age. SKIN: Normal color. Warm. HEENT: [place] palpebral conjunctivae. No ptosis. Dry mucosa. NECK: Short neck, supple. CHEST: Clear to auscultation. No tenderness. HEART: Regular rate and rhythm. No murmur. ABDOMEN: Some distention. Minimal epigastric tenderness. EXTREMITIES: Minimal LE edema. No tenderness. No gross deformities NEUROLOGIC: Coherent, no gross focality. LABORATORY DATA: Hemoglobin was 14.6, hematocrit 44, white cell count was 9, and platelets 270. Sodium 138, potassium 2.9, chloride 100, CO2 of 21, BUN 8, creatinine 0.6, glucose was noted to be 106. AST 49, ALT normal. Lipase was 217. Gallbladder ultrasound as above. ASSESSMENT: 1. Acute calculous cholecystitis. No sepsis. 2. Hypertension, stable. 3. Hypokalemia secondary to emesis, diuretic therapy. 4. Recent viral illness, on empiric Tamiflu Rx. PLAN: GMF Unasyn. Surgery consult RE cholecystitis. Replace potassium. Hold home diuretics for now. Complete Tamiflu course. DVT prophylaxis with Lovenox subQ. Full code. Hospital Course This is a 51 year old female with a PMH of HTN, GERD, recent diagnosis of the flu - presented with epigastric and RUQ pain and subsequently found to have acute cholecystitis Acute Cholecystitis appreciate general surgery input at this point, patient's pain is controlled MRCP done - no CBD stone, there is a gallstone with likely acute cholecystitis plan is for outpatient f/u with general surgery and PCP can use Toradol/Ibuprofen PRN for pain low fat diet on discharge HTN continue home medications GERD continue Zantac DVT ppx Lovenox FULL CODE Total time spent on discharge = 25 minutes This includes examination of the patient, discharge planning, medication reconciliation, and communication with other providers. Discharge Instructions Please follow-up with Abbie Kay PA-C on April 19 at 12:45PM * Please follow a low-fat diet * You will be prescribed Levsin - take one tablet as needed if you have pain - if pain persists after taking the Levsin, return to the ER * Please follow-up with the general surgeon, Dr. Vinson
[2017-04-15 17:45] VITALS: BP 112/79; PULSE 69; TEMP 36.3; O2SAT 96
[2017-04-15] MEDS ORDERED: RANITIDINE HCL 150 MG TAB PO SCH (21:00)
== END 2017-04-15 18:09 | disposition home or self-care (01) | DRG 446 ==
LOC: C.EDB 23:50 → C.MSW 04-15 02:34 → ENRESERV 04-15 02:42
PROVIDERS: ADMIT Family Medicine; ATTEND Family Medicine
DX: K80.00 Calculus of gallbladder with acute cholecystitis without obstruction (principal); I10 Essential (primary) hypertension; K21.9 Gastro-esophageal reflux disease without esophagitis; K57.90 Diverticulosis of intestine, part unspecified, without perforation or abscess without bleeding; E87.6 Hypokalemia; T50.2X5A Adverse effect of carbonic-anhydrase inhibitors, benzothiadiazides and other diuretics, initial encounter; Y92.019 Unspecified place in single-family (private) house as the place of occurrence of the external cause

== ENCOUNTER 2017-04-27 08:07 | Day surgery (SDC) | payer BC ==
[2017-04-26 17:48] VITALS: Ht 165.1 cm; Wt 97.0 kg
[~2017-04-27] VITALS: Ht 165.1 cm; Wt 97.0 kg
[~2017-04-27 08:07] MED LIST changes: -AMIT10TA6 PO; +B-COTAB18 PO; +CHOL2000 PO; +DOCU-94 PO; +HYDR25TA4 PO; -HYOS0.1256 SL; -IBUP-103 PO; +LACTATED RINGER'S 1000ML 1,000 ML IV SCH; -METO25TA56 PO; +MISCCAP80 PO; -MTR600X PO; -OXYC-57 PO; +RANI300T2 PO; -TRIA75TA53 PO
[2017-04-27 08:46] VITALS: BP 124/83; PULSE 60; TEMP 36.6; O2SAT 97
[2017-04-27] MEDS ORDERED: FENTANYL CITRATE INJ 50 MCG/1 ML 2 ML VIAL ONE ×2 (09:14→10:17)
[2017-04-27] MEDS ORDERED: MIDAZOLAM HCL 1 MG/ML 2ML VIAL ONE (09:14)
--- NOTE | 2017-04-27 09:22 | History & Physical Bridge Note ---
H&P Re-Evaluation Bridge Note: I have examined the patient, reviewed the History & Physical and in the interval since the performance of the History & Physical I have noted the following changes of clinical significance: No changes noted family at bedside all questions answered
[2017-04-27] MEDS ORDERED: CEFAZOLIN SOD 1 GM VIAL ONE (09:36)
[2017-04-27] MEDS ORDERED: LIDOCAINE/EPINEPHRINE 1% 20 ML VIAL ONE (09:39)
[2017-04-27] MEDS ORDERED: CONRAY 60% 50 ML VIAL ONE (09:40)
[2017-04-27] MEDS ORDERED: ATROPINE SULFATE 0.1 MG/ML 5ML SYR IV PRN (10:15)
[2017-04-27] MEDS ORDERED: HYDROmorphone INJ 1 MG/ML SYR IV PRN (10:15)
[2017-04-27] MEDS ORDERED: FENTANYL CITRATE INJ 50 MCG/1 ML 2 ML VIAL IV PRN (10:15)
[2017-04-27] MEDS ORDERED: MEPERIDINE HCL 25 MG/ML CARP IV PRN (10:15)
[2017-04-27] MEDS ORDERED: EpHEDrine SULFATE INJ 50 MG/ML AMP IV PRN (10:15)
[2017-04-27] MEDS ORDERED: LABETALOL HCL IV 5 MG/ML 20ML IV PRN (10:15)
[2017-04-27] MEDS ORDERED: ONDANSETRON INJ 2 MG/ML 2 ML VIAL IV PRN ×2 (10:15→11:15)
[2017-04-27] MEDS ORDERED: NEOSTIGMINE METHYLSULFATE 5 MG/5 ML SYR ONE (10:20)
[2017-04-27] MEDS ORDERED: PROPOFOL IV EMULSION 10 MG/ML 20 ML VIAL IV ONE ×2 (10:20→10:21)
[2017-04-27] MEDS ORDERED: DiphenhydrAMINE HCL 50 MG/ML VIAL ONE (10:20)
[2017-04-27] MEDS ORDERED: ONDANSETRON INJ 2 MG/ML 2 ML VIAL ONE (10:20)
[2017-04-27] MEDS ORDERED: GLYCOPYRROLATE INJ 0.2 MG/ML VIAL ONE ×2 (10:20→10:41)
[2017-04-27] MEDS ORDERED: DEXAMETHASONE SOD INJ 4 MG/ML VIAL ONE (10:20)
[2017-04-27] MEDS ORDERED: LIDOCAINE HCL 2% 2 ML VIAL (20MG/ML) ONE (10:20)
--- NOTE | 2017-04-27 10:54 | [facility] Post Operative Brief Note ---
Immediate Operative Summary Operative Date Apr 27, 2017. Pre-Operative Diagnosis ccc Post-Operative Diagnosis same as pre-operative Procedure(s) Performed Laparoscopic Cholecystectomy with Cholangiogram Surgeon Dr. Teodoro Vinson Qa Tech Surgeon(s) Cassie Linder PA-C Estimated Blood Loss 5mL Findings See Below chronic cholecystitis Specimens A. Node of Calot B. Gallbladder Anesthesia Type General
[2017-04-27] MEDS ORDERED: SODIUM CHLORIDE 0.9% 1000ML 1,000 ML IV SCH (11:06)
[2017-04-27] MEDS ORDERED: OXYC-57 PO (11:07)
--- NOTE | 2017-04-27 11:10 | Discharge Instructions ---
Discharge Instructions Date of Service Apr 27, 2017. Admission Reason for Admission: Cholelithiasis Discharge Discharge Diagnosis / Problem: Cholelithiasis Discharge Goals Goal(s): Decrease discomfort, Improve function Activity Recommendations Activity Limitations: as noted below Lifting Limitations: no more than 10 pounds Exercise/Sports Limitations: until after follow-up appointment May Resume Sexual Activity: after follow-up appointment Shower/Bathe: tomorrow Driving or Machine Use: resume 3 days after discharge . Instructions / Follow-Up Instructions / Follow-Up You may shower tomorrow. You have steri-strips over your incisions- please leave these on until they start to fall of by themselves. Please follow-up with Dr. Vinson in the General Surgery Clinic in 1-2 weeks. Please call the office at [phone] to make an appointment if you do not have one already. Please call the office with any questions or concerns. Current Hospital Diet Patient's current hospital diet: Discharge Diet Recommended Diet: Regular Diet Procedures Procedures Performed: Laparoscopic Cholecystectomy with Cholangiogram Pending Studies Studies pending at discharge: yes List of pending studies: Pathology report. Medical Emergencies . Who to Call and When: Medical Emergencies: If at any time you feel your situation is an emergency, please call 911 immediately. . Non-Emergent Contact Non-Emergency issues call your: Primary Care Provider, Surgeon Call Non-Emergent contact if: temperature is above 101.5, your pain is not controlled, wound has increased drainage, wound has increased redness . "Provider Documentation" section prepared by Cassie Linder. . VTE Core Measure Inpt VTE Proph given/why not?: SCD's
[2017-04-27] MEDS ORDERED: OXYCODONE/ACETAMINOPHEN 5-325 TAB PO PRN ×2 (11:15)
--- NOTE | 2017-04-27 11:37 | OPERATIVE REPORT ---
DATE OF OPERATION: 04/27/2017 SURGEON: Dr. Vinson. DEPARTMENTAL BUYER: Cassie Linder PA-C. PREOPERATIVE DIAGNOSIS: Chronic cholecystitis, cholelithiasis. POSTOPERATIVE DIAGNOSIS: Same. PROCEDURE: Laparoscopic cholecystectomy, intraoperative cholangiogram. SUMMARY: After induction of general endotracheal anesthesia, the patient's abdomen was prepped with chlorhexidine since she HAD AN ALLERGY TO IODINE. Once this was completed we made a small incision supraumbilically sufficient enough to place a Veress needle followed by a 5 mm trocar after CO2 insufflated. The scope followed the point of entry inspected and no injury identified. Direct visualization, we placed a 5 mm epigastric, two 5 mm subcostal ports, placed with preemptive local anesthesia 1% Xylocaine, placed the gallbladder under traction, elevating the liver. The gallbladder was slightly thick wall, but no real adhesions appreciated. At this point, we dissected out the triangle of Calot to identify a small lymph node of [place]ot, which was removed. We then created a window. The artery actually came out from therefore we were to get around it and clipped it proximally and once distally and divided. The cystic duct was at its takeoff was a large, but we were able to clip it proximally with 5 mm clips x2. Small opening in the cystic duct was made at its takeoff from the gallbladder and we were able then to close the #4 ureteral catheter transversing abdominal wall and a 14 Angiocath. Serial x-rays were taken which showed in the cystic duct, a small free flow of dye into the duodenum. No obstruction of the common bile duct of the left hepatic radicle. I tried to dilate her up to see more aggressively, but I could not see it, but it grossly was normal. The dye favored to go into the duodenum easily. At this point the cholangiocath was removed, the cystic duct was triply clipped and divided and secured in place, make sure it went through the whole diameter of the cystic duct. Then the gallbladder was removed in antegrade fashion using electrocautery, leaving as much posterior peritoneum was intact as possible. Gallbladder was really thick walled. We placed in an Endopouch and took it out intact through the epigastric port. Once we opened it at the end, the patient had some bilirubinate stones and a thick wall gallbladder. The subhepatic suprahepatic area was then checked, hemostasis appeared satisfactory. I did place a camera in the right subcostal port to visualize the umbilical entry which no adhesions were identified and no bleeding from the trocar. Individual trocars were removed, last umbilical trocar, 4-0 Monocryl for the subcuticular. Steri-Strips applied. The procedure was tolerated well by the patient. Minimal blood loss. The patient was taken to recovery room in good condition. I attest to the content of the Intraoperative Record and any orders documented therein. Any exceptions are noted below. NOEL
[2017-04-27 12:25] VITALS: BP 139/79; PULSE 56; TEMP 36.4; O2SAT 93
[2017-04-27 13:00] VITALS: BP 134/84; PULSE 73; O2SAT 92
--- NOTE | 2017-04-27 13:27 | DIAGNOSTIC IMAGING REPORT ---
CHOLANGIOGRAM O.R. HISTORY: Post cholecystectomy. FLUOROSCOPY TIME: 7 seconds. FINDINGS: Fluoroscopy was provided for an intraoperative cholangiogram status post cholecystectomy. Contrast was injected through the cystic duct remnant. The common bile duct is normal in course and caliber. There are no filling defects seen within the common bile duct to suggest a retained stone. Contrast extends into the small bowel. There is no intrahepatic bile duct dilatation. IMPRESSION: Fluoroscopy provided for an intraoperative cholangiogram status post cholecystectomy. No filling defects within the common bile duct. The above report was generated using voice recognition software. It may contain grammatical, syntax or spelling errors. Electronically signed by: David Jacobsen M.D. 04/27/2017 1:26 PM Dictated Date/Time: 04/27/2017 1:25 PM
[2017-04-27 13:30] VITALS: BP 130/96; PULSE 85; TEMP 36.2; O2SAT 95
[2017-04-27 14:00] VITALS: BP 140/82; PULSE 62; O2SAT 95
--- NOTE | 2017-04-27 14:15 | Anesthesiology Progress Note ---
Anesthesia Post Op Note Date & Time Apr 27, 2017 at 14:15 Vital Signs Pain Intensity: 3 Vital Signs Past 12 Hours Date Time Temp Pulse Resp B/P (MAP) Pulse Ox O2 Delivery O2 Flow Rate FiO2 04/27/17 13:30 36.2 85 18 130/96 95 Nasal Cannula 2 04/27/17 13:00 73 18 134/84 92 Nasal Cannula 2 04/27/17 12:25 36.4 56 16 139/79 93 Room Air 04/27/17 12:15 53 16 133/89 95 Room Air 04/27/17 12:05 36.0 56 16 136/86 94 Room Air 04/27/17 11:56 132/86 04/27/17 11:54 50 15 04/27/17 11:54 50 15 92 04/27/17 11:53 57 10 93 04/27/17 11:53 56 10 04/27/17 11:52 130/82 04/27/17 11:48 52 16 90 04/27/17 11:48 52 16 04/27/17 11:46 120/87 04/27/17 11:43 48 18 04/27/17 11:43 48 18 91 04/27/17 11:41 152/87 04/27/17 11:38 62 15 04/27/17 11:38 62 15 96 04/27/17 11:36 149/89 04/27/17 11:33 64 15 04/27/17 11:33 64 15 95 04/27/17 11:31 148/90 04/27/17 11:28 63 17 04/27/17 11:28 64 17 94 04/27/17 11:26 151/88 04/27/17 11:23 80 16 93 04/27/17 11:23 72 16 04/27/17 11:21 157/83 04/27/17 11:19 154/93 04/27/17 11:18 36.3 65 16 154/93 94 Oxymask 10 04/27/17 08:46 36.6 60 18 124/83 (97) 97 Room Air Notes Mental Status: alert / awake / arousable, participated in evaluation Pt Amnestic to Procedure: Yes Nausea / Vomiting: adequately controlled Pain: adequately controlled Airway Patency, RR, SpO2: stable & adequate BP & HR: stable & adequate Hydration State: stable & adequate Anesthetic Complications: no major complications apparent
[2017-04-27 14:30] VITALS: BP 157/83; PULSE 64; TEMP 36.6; O2SAT 95
== END 2017-04-27 14:40 | disposition home or self-care (01) ==
LOC: C.ACU 08:07
PROVIDERS: ATTEND Surgery
DX: K80.10 Calculus of gallbladder with chronic cholecystitis without obstruction (principal); K21.9 Gastro-esophageal reflux disease without esophagitis; Z91.041 Radiographic dye allergy status; Z88.6 Allergy status to analgesic agent; E66.9 Obesity, unspecified; Z68.36 Body mass index [BMI] 36.0-36.9, adult; Z98.51 Tubal ligation status; Z90.710 Acquired absence of both cervix and uterus; Z98.890 Other specified postprocedural states